=== PATIENT | female | born 1940 | race Caucasian/White ===

== ENCOUNTER → 2016-11-18 | Outpatient (CLI) | payer MEDICARE, OTHER ==
--- NOTE | ~2016-11-18 | NDGEN ---
PATIENT'S NAME: TIMOTHY REESE [facility] AGE: 76 Y [address] ROOM: [place] [address] LOCATION: [facility] ADMIT DATE: 11/18/2016 Neurodiagnostics DISCHARGE DATE: FAMILY PHYSICIAN: Dale King MD ATTENDING PHYSICIAN: Dlae King PROCEDURE: ELECTROENCEPHALOGRAM DATE OF PROCEDURE: 11/18/2016 TEST: TECH: CLINICAL DIAGNOSIS: DURATION OF EE minutes. REASON FOR EEG: Seizures. CLINICAL HISTORY: The patient is a 76-year-old female, who had an episode where she had trouble finding the right words. EEG FINDINGS: The patient is awake for 50% to 60% of the EEG, asleep for remaining during the awake portions of EEG. A 9 hertz background was seen in the posterior head regions. There was a diffuse beta with frequencies of around 20 hertz seen in a generalized distribution with voltages of up to 50 microvolts in the referential montage. Activation procedures included photic stimulation between 3 to 30 hertz, which did not show any abnormalities. CLASSIFICATION: Abnormal one, awake, asleep 10/20 scalp electrodes. 1. Excessive beta. IMPRESSION: This EEG is mostly within normal limits. The presence of excessive beta can sometimes be seen with the use of medication such as benzodiazepines. Please correlate clinically. No epileptiform discharges or EEG seizures were seen during this recording. MD PHILIP KENDRICK/modl /[id number] dtt: 11/21/16 1504 GUS RAM MOHAN R. dtd: 11/21/16 0848
== END | disposition disaster alternative care site (69) ==
LOC: GNEU 12:08
DX: R56.9 Unspecified convulsions (principal); R93.8 Abnormal findings on diagnostic imaging of other specified body structures